=== PATIENT | male | born 1955 | race Hispanic/Latino ===

== ENCOUNTER 2016-12-20 13:14 | Inpatient (IN) | payer MEDICAID, MEDICARE ==
[2016-12-20 14:20] LABS: Basophils % (Auto) 0.5 % (0.0-1.8); Eosinophils % (Auto) 0.2 % (0.0-4.3); Hematocrit 41.7 % (35.5-45.6); Hemoglobin 14.2 gm/dl (11.8-15.2); Mean Corpuscular HGB Conc 34 % (32-34); Mean Corpuscular Hemoglobin 31 pg (28-32); Mean Corpuscular Volume 91 fl (84-94); Platelet Count 331 K/mm3 (140-440); Red Blood Count 4.57 M/mm3 (3.65-5.03); Red Cell Distribution Width 15.3 % (13.2-15.2); White Blood Count 11.9 K/mm3 (4.5-11.0)
[2016-12-20 14:36] LABS: Anion Gap 20 mmol/L; BUN/Creatinine Ratio 23.33; Blood Urea Nitrogen 21 mg/dL (9-20); Calcium 9.6 mg/dL (8.4-10.2); Carbon Dioxide 26 mmol/L (22-30); Chloride 95.3 mmol/L (98-107); Glucose 88 mg/dL (75-100); Potassium 4.6 mmol/L (3.6-5.0); Sodium 137 mmol/L (137-145)
--- NOTE | 2016-12-20 15:39 | XRay Report ---
FINAL REPORT EXAM: XR CHEST ROUTINE 2V HISTORY: chest pain/SOB TECHNIQUE: Frontal and lateral chest radiographs. PRIORS: None. FINDINGS: There is probable eventration of the left hemidiaphragm. The cardiomediastinal silhouette is normal. No focal consolidation. A focal, rounded nodular opacity projects in the right upper lobe measuring 6 millimeters. This nodule projects over right anterior 2nd rib. No pleural effusion. No pneumothorax. No acute osseous abnormality. Kyphoscoliosis of the thoracic spine is seen. IMPRESSION: 6 millimeter right upper lobe nodular opacity. Recommend further evaluation with chest CT.
--- NOTE | 2016-12-21 02:15 | Emergency Department Report ---
ED Chest Pain HPI - General Chief Complaint: Chest Pain Stated Complaint: CONGESTION/ACHY CHEST Time Seen by Provider: 12/21/16 02:00 Source: patient Mode of arrival: Ambulatory Limitations: No Limitations - History of Present Illness Initial Comments: 61 years old male coming with central chest pain, sharp and sometimes aching in nature, no radiation,. History of bilateral PE , he was on Elliqous, he stated that his primary care physician took him of Elliqous and started him on baby aspirin. Patient denied any shortness of breath, no nausea, no vomiting, no fever, no cough. MD Complaint: chest pain -: Last night Onset: during rest Severity scale (0 -10): 2 Other Symptoms: denies: cough, fever, syncope - Related Data Allergies Allergy/AdvReac Type Severity Reaction Status Date / Time Sulfa (Sulfonamide Allergy Rash Verified 12/20/16 13:54 Antibiotics) Heart Score - HEART Score History: Moderately suspicious EKG: Non-specific Age: 45-65 Risk factors: 1-2 risk factors Troponin: < normal limit HEART Score: 4 - Critical Actions Critical Actions: 4-6 pts:12-16.6% risk of adverse cardiac event. Should be admitted ED Review of Systems ROS: Stated complaint: CONGESTION/ACHY CHEST Other details as noted in HPI Comment: All other systems reviewed and negative Constitutional: denies: chills, fever Respiratory: denies: cough, shortness of breath, SOB with exertion Cardiovascular: chest pain. denies: palpitations, dyspnea on exertion, syncope Gastrointestinal: denies: abdominal pain, nausea, vomiting Musculoskeletal: denies: back pain Neurological: denies: weakness ED Past Medical Hx - Past Medical History Previous Medical History?: Yes Hx Pulmonary Embolism: Yes Additional medical history: On Eliquis until April 2016. Now on low dose ASA only. - Surgical History Past Surgical History?: Yes Additional Surgical History: back surgery/vertebrae fusion. - Social History Smoking Status: Former Smoker Substance Use Type: None ED Physical Exam - General Limitations: No Limitations General appearance: alert, in no apparent distress - Head Head exam: Present: atraumatic - ENT ENT exam: Present: normal exam - Neck Neck exam: Present: normal inspection - Respiratory Respiratory exam: Present: normal lung sounds bilaterally. Absent: wheezes, rales, rhonchi - Cardiovascular Cardiovascular Exam: Present: regular rate, normal rhythm, normal heart sounds - GI/Abdominal GI/Abdominal exam: Present: soft. Absent: distended, tenderness, guarding, rebound, mass, bruit, pulsatile mass, hernia - Back Exam Back exam: Present: normal inspection. Absent: CVA tenderness (R), CVA tenderness (L) - Neurological Exam Neurological exam: Present: alert, oriented X3, CN II-XII intact - Skin Skin exam: Present: warm, intact, normal color ED Course Vital Signs 12/20/16 12/20/16 13:48 23:42 Temperature 97.8 F 97.8 F Pulse Rate 61 70 Respiratory 20 18 Rate Blood Pressure 114/80 137/92 O2 Sat by Pulse 97 98 Oximetry - Reevaluation(s) Reevaluation #1: 12/21/16 04:[address] Cheri Anderson for admission chest pain rule out [place]. ED Medical Decision Making - Lab Data Result diagrams: 12/20/16 14:00 12/20/16 14:00 Critical care attestation.: If time is entered above; I have spent that time in minutes in the direct care of this critically ill patient, excluding procedure time. ED Disposition Clinical Impression: Chest pain Disposition: -09 OP ADMIT IP TO THIS HOSP Is pt being admited?: Yes Does the pt Need Aspirin: Yes Condition: Stable Instructions: Chest Pain (ED) Referrals: PRIMARY CARE, [Primary Care Provider] - 3-5 Days
[2016-12-21] MEDS ORDERED: NACL ONE (02:37)
[2016-12-21 03:05] LABS: INR 1.01 (0.87-1.13)
[2016-12-21 03:07] LABS: Partial Thromboplastin Time 26.8 Sec. (24.2-36.6)
--- NOTE | 2016-12-21 04:12 | Cat Scan Report ---
FINAL REPORT PROCEDURE: CT ANGIO CHEST TECHNIQUE: Computerized axial tomographic angiography of the chest and pulmonary arteries was performed after the IV injection of iodinated nonionic contrast. The image data was postprocessed using maximum intensity projection (MIP) and 2-dimensional multiplanar reformatted (MPR) techniques. The examination is specifically tailored to the evaluation of the pulmonary arteries per clinical request. HISTORY: Short of breath 786.09, chest pain 786.50, CHEST PAIN, h/o PE COMPARISON: No prior studies are available for comparison. FINDINGS: Heart and pericardium: Normal. Thoracic aorta: There is no thoracic aortic aneurysm or dissection.. Pulmonary vasculature: There is no acute pulmonary embolism. There is attenuation of the left basilar segmental pulmonary artery branches which could be related to chronic pulmonary embolism.. Lymph nodes: No enlarged thoracic lymph nodes. Lungs: Lungs are clear. There is mild fibrosis at the left lung base. There are no active infiltrates.. Pleural space: No effusion, thickening, or pneumothorax. Musculoskeletal structures: No significant abnormality. Upper abdominal structures: No significant abnormality. IMPRESSION: The heart size is normal. There is no thoracic aortic aneurysm or dissection.. There is no acute pulmonary embolism. There is attenuation of the left basilar segmental pulmonary artery branches which could be related to chronic pulmonary embolism.. Lungs are clear. There is mild fibrosis at the left lung base. There are no active infiltrates.. .
[2016-12-21] MEDS ORDERED: BABY ASPIRIN PO ONE (04:25)
[2016-12-21] MEDS ORDERED: ZOFRAN IV PRN (05:49)
[2016-12-21] MEDS ORDERED: TYLENOL PO PRN (05:49)
[2016-12-21] MEDS ORDERED: MILK OF MAGNESIA PO PRN (05:49)
[2016-12-21] MEDS ORDERED: DULCOLAX PR PRN (05:49)
[2016-12-21] MEDS ORDERED: MORPHINE IV PRN (05:49)
--- NOTE | 2016-12-21 05:52 | History and Physical Report ---
History of Present Illness Date of examination: 12/21/16 History of present illness: 61-year-old history of PE,now off eliquis, hypertension, complaints of chest pain. The pain is on the substernal area bilateral, described as achy, intensity 5/10, unclear along last year, worse when he bends over. He admits to shortness of breath, no nausea vomiting, diaphoresis or palpitation Review Of Systems: Constitutional: no weight loss Ears, eyes, nose, mouth and throat: no nasal congestion, no nasal discharge, no sinus pressure, blurry vision, diplopia Neck: No neck pain or rigidity. Cardiovascular:no orthopnea, palpitations Respiratory: No shortness of breath, cough Gastrointestinal: abdominal pain, hematochezia Genitourinary : no dysuria, frequency , hematuria Musculoskeletal: no muscle ache Integumentary: no rash, no pruritis Neurological: no parathesias, focal weakness Endocrine: no cold or heat intolerance, no polyuria or polydipsia Hematologic/Lymphatic: no easy bruising, no easy bleeding, no gland swelling Allergic/Immunologic: no urticaria, no angioedema. PAST MEDICAL HISTORY:hypertension PAST SURGICAL HISTORY: Surgery to the chest FAMILY HISTORY: Hypertension SOCIAL HISTORY: Social alcohol, no tobacco, no drugs Medications and Allergies Allergies Allergy/AdvReac Type Severity Reaction Status Date / Time Sulfa (Sulfonamide Allergy Rash Verified 12/20/16 13:54 Antibiotics) Exam - Physical Exam Narrative exam: Gen. appearance: Patient lying in bed in no acute distress HEENT: Normocephalic/atraumatic, pupils equal round reactive to light, extra alkaline movement intact, no scleral icterus, no JVD or thyromegaly or nodule, neck is supple, mucous membrane moist, no erythema or exudate Heart: S1-S2, regular rate and rhythm Lungs: Clear to auscultation bilateral breathing comfortable Abdomen: Positive bowel sounds, nontender, nondistended, no organomegaly Extremities: No edema, cyanosis, clubbing Neuro:: Oriented 3 , cranial nerves II-12 intact, speech, motor intact Skin: No rash, nodules, warm dry - Constitutional Vitals: Temp Pulse Resp BP Pulse Ox 97.8 F 70 18 137/92 98 12/20/16 23:42 12/20/16 23:42 12/20/16 23:42 12/20/16 23:42 12/20/16 23:42 Results - Labs CBC & Chem 7: 12/20/16 14:00 12/20/16 14:00 Labs: Abnormal lab results 12/20/16 12/20/16 Range/Units 14:00 14:00 WBC 11.9 H (4.5-11.0) K/mm3 RDW 15.3 H (13.2-15.2) % Lymph % (Auto) 9.3 L (13.4-35.0) % Lymph # 1.1 L (1.2-5.4) K/mm3 Seg Neutrophils % 85.2 H (40.0-70.0) % Seg Neutrophils # 10.1 H (1.8-7.7) K/mm3 Chloride 95.3 L (98-107) mmol/L BUN 21 H (9-20) mg/dL - Imaging and Cardiology EKG: image reviewed Chest x-ray: image reviewed CT scan - chest: report reviewed Assessment and Plan Assessment Chest pain, rule out ACS Hypertension History of PE Plan Admit to medicine Check cardiac enzymes, stress test Start IV morphine, DVT prophylaxis continue appropriate outpatient medications
--- NOTE | 2016-12-21 07:24 | Admit Criteria Form ---
Admission Criteria Documentation: CARDIOLOGY GRG Clinical Indications for Admission to Inpatient Care ([place]/check or initial the applicable condition/criteria) Hospital admission is needed for appropriate care of the patient because of ANY ONE of the following: [ ] I. Hemodynamic instability as indicated by ALL of the following (1)(2)(3) (4)(5)(6)(7)(8)(9)(10) [ ]a) Vital sign abnormality not readily corrected by appropriate treatment with 12-24 hours for ANY ONE: [ ]i) Hypotension that persists despite appropriate treatment (eg, volume repletion) [ ]ii) Tachycardiathat persists despite appropriate tx ( e.g., analgesia, fluids, sedation as indicated [ ]iii) Orthostatic vital sign changes that persists despite appropriate treatment (eg, volume repletion) [ ]b) Vital sign abnormailty that is severe indicated by ANY ONE of the following: [ ]i) Inadequate perfusion indicated by ANY ONE of the following: [ ] 1) Lactic acidosis (> 2 mmol/L) [ ] 2) New abnormal capillary refill (> 3 seconds) [ ] 3) Reduced urine output [ ] 4) New altered mental status [ ] 5) Myocardial Ischemia [ ] 6) Other metabolic acidosis (arterial pH <7.35 ) not otherwise explained. [ ]ii) Mean arterial pressure[A] less than 60 mm Hg [ ]iii) Mean arterial pressure[A] less than 70 mm Hg after 30 minutes of appropriate treatment (eg, fluid resuscitation) [ ]iv) Sustained heart rate greater than 120 beats per minute in adult or child 6 years or older[B] [ ]v) IV inotropic or vasopressor medication required to maintain adequate blood pressure or perfusion [ ] II. Severe heart failure as indicated by ANY ONE of the following(17)(18) [ ]a) Respiratory distress [ ]b) Hypotension [ ]c) Debilitating anasarca refractory to therapy (eg, tissue breakdown with infection)[C](19) [ ]d) Cardiac arrhythmias of immediate concern [ ]e) Myocardial ischemia [ ] III. Cardiac arrhythmias or findings of immediate concern indicated by ANY ONE of the following (21)(22): [ ] a) Heart rhythms that are inherently dangerous or unstable indicated by ANY ONE of the following (23)(24)(25): [ ] i) Resuscitated ventricular fibrillation or cardiac arrest [ ] ii) Ventricular escape rhythm [ ] iii) Sustained ventricular tachycardia (30 seconds or more of ventricular rhythm at greater than 100 beats per minute) [ ] iv) Nonsustained ventricular tachycardia and ANY ONE of the following: [ ] 1) Suspected cardiac ischemia as cause or consequence of ventricular tachycardia [ ] 2) Acute myocarditis [ ] b) Unstable cardiac conduction defects indicated by ANY ONE of the following(25)(26)(27) [ ] i) Type II second-degree atrioventricular block [ ]ii) Third-degree atrioventricular block [ ]iii) New-onset left bundle branch block with suspected myocardial ischemia [ ]c) Any heart rhythm and ANY ONE of the following (23)(24)(28)(29) (30) [ ] i) Continuous long-term ECG monitoring needed (e.g., initiation of drug requiring monitoring for more than 24 hours) [ ] ii) Patient has automatic implanted cardioverter defibrillator that is repeatedly firing, malfunctioning, or in need of immediate adjustment of settings beyond the scope of ambulatory or observation care [ ]d) Heart rhythms of concern due to ANY ONE of the following: [ ] i) Hypotension [ ] ii) Respiratory distress [ ] iii) Association with other significant symptoms (e.g., bradycardia with syncope or ongoing dizziness, supraventricular tachycardia with chest pain (28)(29)(31) [ ] IV. Monitoring for cardiac contusion beyond the scope of observation care needed [A](32)(33)(34) [ ] V. Surgical or device complication (e.g., valve replacement complication , ICD disfunction or pacemaker dysfunction) (49)(50)(51)(52)(53)(54) [ ] . Inpatient palliative care needed. [F](51)(52) Also use Inpatient Palliative Care Criteria [ ] VII. Nonbacterial thrombotic (marantic) endocarditis(43)(44)(55)(56)(57) [X] VIII. Cardiology condition, symptom, or finding for which emergency and observation care has failed or are not considered appropriate. [ ] IX. Acute valvular disease requiring inpatient as indicated by ANY ONE of the following (40)(41) [ ]a) Acute valvular regurgitation (42) [ ]b) Noninfectious valvulitis (43)(44) [ ]c) Obstructive valve thrombosis (45)(46) [ ]d) Paravalvular leak(47)(48) [ ]e) Other significant valvular disorder remaining after emergency or observation level of care (as appropriate) [ ]X. Pericardial disease requiring inpatient treatment as indicated by ANY ONE of the following (35)(36)(37)(38) [ ]a) Suspected tamponade [ ]b) Hemopericardium [ ]c) Other significant pericardial disorder remaining after emergency or observation level of care (as appropriate)(39) [ ] XI. Cardiac ischemia beyond scope of emergency and observation care. [ ] XII. Cyanotic heart disease requiring inpatient care as indicated by 1 or more of the following(58)(59)(60): [ ]a) Acute onset of hypoxemia [ ]b) Exacerbation [ ] XIII. Hypertension requiring inpatient treatment as indicated by ANYONE of the following(11)(12)(13)(14): [ ]a) Severe hypertension (SBP greater than 180 mm Hg or DBP greater than 110 mm Hg, or greater than the 95th percentile for age, gender, and height in pediatric patients) that cannot be controlled (eg, to SBP less than 160 mm Hg and DBP less than 100 mm Hg) by emergency department or observation care treatment(15) [ ]b) Acute end organ damage secondary to hypertension (SBP greater than 140 mm Hg or DBP greater than 90 mm Hg) as indicated by ANYONE of the following: [ ] i) Hypertensive encephalopathy (eg, Altered mental status)(16) [ ] ii) Cerebral infarction [ ] iii) Intracranial hemorrhage [ ] iv) Myocardial ischemia or infarction [ ] v) Heart failure (eg, pulmonary edema) [ ] vi) Aortic dissection [ ] vii) Increased creatinine (new) with reduction of more than 50% in estimated glomerular filtration rate from baseline [ ] viii) Papilledema [ ] ix) Retinal hemorrhage [ ] x) Microangiopathic hemolytic anemia [ ] xi) Seizure [ ] xii) Other significant finding secondary to hypertension [ ] XIV. Complications of transplanted heart indicated by ANY ONE of the following(61): [ ]a) Acute graft rejection requiring inpatient management (eg, intravenous imunosuppression)(62)(63) [ ]b) Acute graft heart failure indicated by ANY ONE of the following(64): [ ] i) Hemodynamic instability [ ] ii) Cardiac arrhythmias of immediate concern [ ] iii) Pulmonary edema that is very severe (eg, mechanical ventilation needed, imminent or likely, need for 100% oxygen to keep oxygen saturation above 90%) [ ] iv) Pulmonary edema that is persistent as indicated by ALL of the following: [ ] 1) New need for oxygen therapy to keep oxygen saturation above 90 % (or increased FiO2 need from baseline) [ ] 2) Has not improved sufficiently with emergency department or observation care IV diuretics or other heart failure treatments[E]. [ ] iv) Altered mental status that is severe or persistent [ ] iv) Increased creatinine (new on laboratory test) with reduction of more than 50% in estimated glomerular filtration rate from baseline [ ] iv) Progressively (ongoing) rising creatinine (known from past laboratory test) with reduction of more than 25% in estimated glomerular filtration rate from baseline [ ] iv) Acute renal failure [ ] iv) Acute peripheral ischemia (eg, examination shows pulseless, cool, mottled, or cyanotic extremity) [ ] iv) Pulmonary artery catheter monitoring needed [ ] iv) Other sign or symptom of heart failure requiring inpatient treatment (ie, too severe or not responsive to outpatient and observation care treatment) [ ]c) Infection requiring inpatient management (eg, Hemodynamic instability, need for intravenous antimicrobial treatment)(66)(67)(68)(69)(70) [ ]d) Cardiac allograft vasculopathy requiring inpatient management (eg evidence of cardiacischemia)(71) [ ]e) Other complication of transplanted heart (eg, stroke, severe pulmonary hypertension, severe valvular dysfunction) requiring inpatient management(72) The original [employer] content created by [employer] has been revised. The portions of the content which have been revised are identified through the use of italic text or in bold, and [facility] has neither reviewed nor approved the modified material. All other unmodified content is copyright [facility]. Please see references footnoted in the original [facility] edition 2017 Admission Criteria Met: Yes
[2016-12-21] MEDS ORDERED: LEXISCAN IV ONE ×2 (11:13→11:19)
[2016-12-21] MEDS: LOVENOX SUB-Q SCH (11:30)
[2016-12-21] MEDS: MUCINEX ER PO SCH (21:52)
[2016-12-21] MEDS ORDERED: SINGULAIR PO SCH (22:00)
--- NOTE | 2016-12-21 22:21 | Progress Note ---
Assessment and Plan Assessment and plan: 61-year-old history of PE, now off eliquis, hypertension, complaints of chest pain. The pain is on the substernal area bilateral, described as achy, intensity 5/10, unclear how long it lasts, worse when he bends over. He admits to shortness of breath, no nausea vomiting, diaphoresis or palpitation. Atypical chest pain- Likely costochondritis * Negative stress test. * Resume home medications * pain now resolved. * Will recommend rescan in 3 weeks to re-evaluate for PE * Continue full dose ASA * Check lipid profile. Lower lobe attenution-Possible secondary to chronic PE vs atalectasis- No acute PE Hypertension- controlled DVT/GI Prophy Patient is on multiple medications including Metotraxate, he is unsure why he is on this medicin but things it is for his legs. Discharge in am if remains stable plan discussed with the patient History Interval history: patient seen and examined, in no acute distress. Reports he feels the pain was secondary to weight gain. Reports mild improvement Hospitalist Physical - Constitutional Vitals: Temp Pulse Resp BP Pulse Ox 97.9 F 82 22 132/74 98 12/21/16 20:54 12/21/16 20:54 12/21/16 20:54 12/21/16 20:54 12/21/16 20:54 General appearance: Present: no acute distress, well-nourished - EENT Eyes: Present: PERRL, EOM intact ENT: hearing intact, clear oral mucosa - Neck Neck: Present: supple, normal ROM - Respiratory Respiratory effort: normal Respiratory: bilateral: CTA - Cardiovascular Rhythm: regular Heart Sounds: Present: S1 & S2. Absent: systolic murmur - Extremities Extremities: no ischemia, pulses intact, pulses symmetrical Peripheral Pulses: within normal limits - Abdominal General gastrointestinal: soft, non-tender, non-distended - Integumentary Integumentary: Present: clear, warm - Psychiatric Psychiatric: appropriate mood/affect, intact judgment & insight, memory intact, cooperative - Neurologic Neurologic: CNII-XII intact, moves all extremities - Allied Health Allied health notes reviewed: nursing Results - Labs CBC & Chem 7: 12/20/16 14:00 12/20/16 14:00 Labs: Laboratory Last Values WBC 11.9 K/mm3 (4.5-11.0) H 12/20/16 14:00 RBC 4.57 M/mm3 (3.65-5.03) 12/20/16 14:00 Hgb 14.2 gm/dl (11.8-15.2) 12/20/16 14:00 Hct 41.7 % (35.5-45.6) 12/20/16 14:00 MCV 91 fl (84-94) 12/20/16 14:00 MCH 31 pg (28-32) 12/20/16 14:00 MCHC 34 % (32-34) 12/20/16 14:00 RDW 15.3 % (13.2-15.2) H 12/20/16 14:00 Plt Count 331 K/mm3 (140-440) 12/20/16 14:00 Lymph % (Auto) 9.3 % (13.4-35.0) L 12/20/16 14:00 [place] % (Auto) 4.8 % (0.0-7.3) 12/20/16 14:00 Eos % (Auto) 0.2 % (0.0-4.3) 12/20/16 14:00 Baso % (Auto) 0.5 % (0.0-1.8) 12/20/16 14:00 Lymph # 1.1 K/mm3 (1.2-5.4) L 12/20/16 14:00 [place] # 0.6 K/mm3 (0.0-0.8) 12/20/16 14:00 Eos # 0.0 K/mm3 (0.0-0.4) 12/20/16 14:00 Baso # 0.1 K/mm3 (0.0-0.1) 12/20/16 14:00 Seg Neutrophils % 85.2 % (40.0-70.0) H 12/20/16 14:00 Seg Neutrophils # 10.1 K/mm3 (1.8-7.7) H 12/20/16 14:00 PT 13.2 Sec. (12.2-14.9) 12/21/16 02:36 INR 1.01 (0.87-1.13) 12/21/16 02:36 APTT 26.8 Sec. (24.2-36.6) 12/21/16 02:36 Sodium 137 mmol/L (137-145) 12/20/16 14:00 Potassium 4.6 mmol/L (3.6-5.0) 12/20/16 14:00 Chloride 95.3 mmol/L (98-107) L 12/20/16 14:00 Carbon Dioxide 26 mmol/L (22-30) 12/20/16 14:00 Anion Gap 20 mmol/L 12/20/16 14:00 BUN 21 mg/dL (9-20) H 12/20/16 14:00 Creatinine 0.9 mg/dL (0.8-1.5) 12/20/16 14:00 Estimated GFR > 60 ml/min 12/20/16 14:00 BUN/Creatinine Ratio 23.33 % 12/20/16 14:00 Glucose 88 mg/dL (75-100) 12/20/16 14:00 Calcium 9.6 mg/dL (8.4-10.2) 12/20/16 14:00 Troponin T < 0.010 ng/mL (0.00-0.029) 12/20/16 20:22 Lipase 51 units/L (13-60) 12/21/16 02:36 - Imaging and Cardiology Chest x-ray: image reviewed (no acute pathology)
--- NOTE | 2016-12-22 01:45 | Treadmill Report ---
NUCLEAR CARDIAC IMAGING INDICATION FOR PROCEDURE: Chest pain. Informed consent was obtained. DESCRIPTION OF PROCEDURE: Resting nuclear cardiac images were performed 45-60 minutes following the intravenous administration of 10 mCi of technetium-99m Myoview. Vasodilator stress was then performed following the intravenous administration of 0.4 mg of Lexiscan per protocol. Subsequently, stress myocardial perfusion imaging was performed with 30-45 minutes following the intravenous administration of 28 mCi of technetium-99m Myoview. Images were obtained in a 180-degree arc from 45 degrees BUSTOS to 45 degrees LPO. After data acquisition and reconstruction, the images were processed and reoriented into the vertical long, horizontal long, and horizontal short axis slices. A polar color map of the horizontal short axis slices was generated and reviewed. The rotating planar images were reviewed in cinematic format on the computer console. The post-stress left ventricular ejection fraction is 75% with normal wall motion. Myocardial perfusion imaging demonstrates no significant cavity change between stress and rest. There is a small mild reversible mid to basal anterior perfusion defect, but this is seen only in the horizontal short axis projection and is likely artifactual in origin. No other significant stress induced perfusion abnormalities are seen. Nuclear cardiac imaging demonstrates grossly normal post-stress left ventricular systolic function. There is no evidence for myocardial necrosis. There is no significant evidence for myocardial ischemia. [facility]# [id number] [place]
[2016-12-22] MEDS: MUCINEX ER PO SCH (09:02)
[2016-12-22] MEDS: LOVENOX SUB-Q SCH (09:03)
[2016-12-22] MEDS ORDERED: FOLVITE PO SCH (10:00)
[2016-12-22] MEDS ORDERED: METHOTREXATE(DOSE WEEKLY ONLY) PO SCH (10:00)
[2016-12-22] MEDS ORDERED: ZESTRIL PO SCH (10:00)
--- NOTE | 2016-12-22 10:33 | Discharge Summary ---
Providers - Providers Date of Admission: 12/21/16 05:52 Attending physician: JOELLE MONTERO MD Primary care physician: [facility] Hospitalization Reason for admission: chest pain Condition: Stable Hospital course: 61-year-old history of PE, now off eliquis, hypertension, complaints of chest pain. The pain is on the substernal area bilateral, described as achy, intensity 5/10, unclear how long it lasts, worse when he bends over. He admits to shortness of breath, no nausea vomiting, diaphoresis or palpitation. Atypical chest pain- Likely costochondritis * Negative stress test. * Resume home medications * pain now resolved. 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 Is anxious to get back to activity of advised him to take it slowly and he verbalized understanding. Disposition: DC-01 TO HOME OR SELFCARE Time spent for discharge: 35 MINS Core Measure Documentation - Palliative Care Palliative Care/ Comfort Measures: Not Applicable - Core Measures Any of the following diagnoses?: none - VTE Discharge Requirements Deep Vein Thrombosis/Pulmonary Embolism Present on Admission: No Exam - Physical Exam Narrative exam: VITAL SIGNS: Reviewed. GENERAL: The patient appeared well nourished and normally developed. Vital signs as documented. HEAD: No signs of head trauma. EYES: Pupils are equal. Extraocular motions intact. EARS: Hearing grossly intact. MOUTH: Oropharynx is normal. NECK: No adenopathy, no JVD. CHEST: Chest with clear breath sounds bilaterally. No wheezes, rales, or rhonchi. CARDIAC: Regular rate and rhythm. S1 and S2, without murmurs, gallops, or rubs. VASCULAR: No Edema. Peripheral pulses normal and equal in all extremities. ABDOMEN: Soft, without detectable tenderness. No sign of distention. No rebound or guarding, and no masses palpated. Bowel Sounds normal. MUSCULOSKELETAL: Good range of motion of all major joints. Extremities without clubbing, cyanosis or edema. NEUROLOGIC EXAM: Alert and oriented x 3. No focal sensory or strength deficits. Speech normal. Follows commands. PSYCHIATRIC: Mood normal. SKIN: No rash or lesions. - Constitutional Vitals: Temp Pulse Resp BP Pulse Ox 97.7 F 72 16 108/70 95 08/29/17 08:12 12/22/16 08:12 12/22/16 08:12 12/22/16 08:12 12/22/16 08:12 Plan Activity: advance as tolerated, fall precautions Diet: regular Special Instructions: record daily BP diary Additional Instructions: CONTINUE ALL HOME MEDICATIONS Follow up with: PRIMARY CARE, [Primary Care Provider] - 3-5 Days
[2016-12-22 11:41] VITALS: BP 95/71
== END 2016-12-22 14:35 | disposition home or self-care (01) | DRG 206 ==
LOC: ED 13:14 → 4A 12-21 05:52
PROVIDERS: ADMIT Internal Medicine; ATTEND Internal Medicine
DX: M94.0 Chondrocostal junction syndrome [Tietze] (principal); I27.82 Chronic pulmonary embolism; I10 Essential (primary) hypertension; Z79.01 Long term (current) use of anticoagulants; Z88.2 Allergy status to sulfonamides; Z87.891 Personal history of nicotine dependence; Z82.49 Family history of ischemic heart disease and other diseases of the circulatory system
CPT/HCPCS: 36415; 71020; 71275; 78452; 80048; 83690; 84484; 85025; 85610; 85730; 93005; 93010; 93017; A9502; J1650; J2785; J8610; Q9967

== ENCOUNTER 2017-04-09 13:44 | Outpatient (CLI) | payer MEDICARE ==
--- NOTE | 2017-04-09 19:27 | Ultrasound Report ---
FINAL REPORT EXAM: US ABDOMEN COMPLETE HISTORY: EPIGASTRIC PAIN,ABDOMINAL BLOATING,ABDOMINAL PAIN TECHNIQUE: Ultrasound abdomen PRIORS: None. FINDINGS: No focal abnormalities identified in the visualized portion liver parenchyma. No evidence of cholelithiasis or gallbladder wall thickening. No pericholecystic fluid seen. The common bile duct is within normal limits measuring 0.2 centimeters Right kidney demonstrates no evidence of hydronephrosis. It measures 10.5 x 4.6 x 5.2 centimeters. Cortical thickness 1.3 centimeters Left kidney is 11.0 x 5.5 x 4.2 centimeters. Cortical thickness 1.4 centimeters. No evidence for hydronephrosis. IMPRESSION: Negative. No evidence of biliary obstruction or cholelithiasis
== END 2017-04-09 13:45 | disposition home or self-care (01) ==
LOC: US 13:44
PROVIDERS: ATTEND Internal Medicine Gastroenterology
DX: R10.13 Epigastric pain (principal); R14.0 Abdominal distension (gaseous); Z87.891 Personal history of nicotine dependence
CPT/HCPCS: 76700

== ENCOUNTER 2017-05-05 11:08 | Outpatient (CLI) | payer MEDICARE ==
[2017-05-05 12:10] LABS: Blood Urea Nitrogen 18 mg/dL (9-20)
--- NOTE | 2017-05-06 08:21 | Cat Scan Report ---
CT of the abdomen and pelvis with IV and oral contrast. History: Epigastric pain, abdominal distention. Findings: There is a subcentimeter round hypodensity in the posterior aspect of the right lobe of the liver, best seen on image 68 of series 2. Otherwise the liver is normal. The spleen, pancreas, gallbladder, and adrenal glands are normal. Kidneys are normal in size and configuration with no evidence of mass or hydronephrosis. No adenopathy is seen within the retroperitoneum. There are no pelvic masses or abnormal fluid collections. There is no radiographic evidence of appendicitis. No mesenteric inflammation is seen. Severe discogenic changes are seen at the L1 to and L3-4 levels. Scoliosis is noted. Impression: Small hepatic cyst, otherwise unremarkable study.
== END 2017-05-05 11:09 | disposition home or self-care (01) ==
LOC: CT 11:08
PROVIDERS: ATTEND Internal Medicine Gastroenterology
DX: K76.89 Other specified diseases of liver (principal); R14.0 Abdominal distension (gaseous); M41.86 Other forms of scoliosis, lumbar region
CPT/HCPCS: 36415; 74177; 82565; 84520; Q9967

== ENCOUNTER 2017-12-22 06:05 | Day surgery (SDC) | payer MEDICARE ==
[~2017-12-22 06:05] MED LIST: NACL 0.9% 1000 ML 1,000 ML IV SCH
[2017-12-22] MEDS ORDERED: WATER FOR IRRIG STERILE ONE (07:13)
[2017-12-22] MEDS ORDERED: WATER FOR IRRIG STERILE IR ONE (07:13)
[2017-12-22] MEDS ORDERED: DIPRIVAN 10 MG/ML IV ONE ×2 (07:20)
[2017-12-22] MEDS ORDERED: NACL 0.9% 1000 ML 1,000 ML IV SCH (08:00)
--- NOTE | 2017-12-22 08:34 | Short Stay Summary ---
Short Stay Documentation - Allergies and Medications Current Medications: Allergies Sulfa (Sulfonamide Antibiotics) Allergy (Verified 12/20/16 13:54) Rash Home Medications Medication Instructions Recorded Confirmed Last Taken Type Adult Low Dose Aspirin EC 81 mg PO DAILY 12/22/17 12/22/17 12/16/17 History Benazepril (Nf) 2.5 mg PO DAILY 12/22/17 12/22/17 12/21/17 History Cetirizine HCl 1 tab PO DAILY 12/22/17 12/22/17 12/21/17 History Folic Acid 1 mg PO DAILY 12/22/17 12/22/17 Unknown History Hydrochlorothiazide 25 mg PO DAILY 12/22/17 12/22/17 12/20/17 History Methotrexate 2.5 mg PO QWEEK 12/22/17 12/22/17 12/15/17 History Active Medications Sodium Chloride (Nacl 0.9% 1000 Ml) 1,000 mls @ 50 mls/hr IV DIRECT JULY Last Admin: 12/22/17 07:34 Dose: 50 mls/hr - Brief post op/procedure progress note Date of procedure: 12/22/17 Pre-op diagnosis: Colon cancer screening Post-op diagnosis: same (1. Colon polyp 2. Diverticulosis 3. Internal hemorrhoids) Procedure: Colonoscopy with snare polypectomy Anesthesia: MAC Findings: as above Surgeon: DAIN RATLIFF Estimated blood loss: none Pathology: list (1. Rectal polyp) Specimen disposition: to lab Condition: stable - Disposition Condition at discharge: Stable Disposition: DC-01 TO HOME OR SELFCARE Short Stay Discharge Plan Activity: no restrictions Weight Bearing Status: Full Weight Bearing Diet: regular, low salt Follow up with: SELINA VILLEGAS MD [Primary Care Provider] - 7 Days
[2017-12-22 09:09] VITALS: BP 124/55
== END 2017-12-22 06:06 | disposition home or self-care (01) ==
LOC: GIO 06:05
PROVIDERS: ATTEND Internal Medicine Gastroenterology
DX: Z12.11 Encounter for screening for malignant neoplasm of colon (principal); D12.8 Benign neoplasm of rectum; K64.0 First degree hemorrhoids; K57.30 Diverticulosis of large intestine without perforation or abscess without bleeding; Z88.2 Allergy status to sulfonamides; Z87.891 Personal history of nicotine dependence; Z79.899 Other long term (current) drug therapy; I10 Essential (primary) hypertension; Z98.890 Other specified postprocedural states; K21.9 Gastro-esophageal reflux disease without esophagitis; M19.90 Unspecified osteoarthritis, unspecified site
CPT/HCPCS: 45385; 88305; J2704; J7030